=== PATIENT | female | born 1980 ===

== ENCOUNTER 2018-03-11 18:41 | Emergency (ER) | payer MEDICAID ==
[2018-03-11 18:47] VITALS: RESP 16; TEMP 98.4; O2SAT 100
--- NOTE | 2018-03-11 19:07 | ED PDOC ---
HPI: Hypertension/Hypotension Time Seen by Provider: 03/11/18 18:48 Chief Complaint (Nursing): High Blood Pressure Chief Complaint (Provider): elevated blood pressure, leg edema, palpitations History Per: Histology Supervisor ([id number]) History/Exam Limitations: no limitations Onset/Duration Of Symptoms: Days (5-6) Associated Symptoms: denies: Chest Pain, Dyspnea, Dizziness, Blurred Vision, Focal Weakness, Headache Quality Of Symptoms: Rapid Heart Rate Severity: Mild Additional Complaint(s): 37yo female c/o b/l LE edema associated with palpitations and lower extremity cramping ongoing for 1-2 weeks. States takes norvasc and HCTZ for high blood pressure. Denies SOB, chest pain, orthopnea, syncope or dizziness. Denies history blood clots or smoking. Past Medical History Reviewed: Historical Data, Nursing Documentation, Vital Signs Vital Signs: Last Vital Signs Temp 98.4 F 03/11/18 18:43 Pulse 84 03/11/18 18:43 Resp 16 03/11/18 18:43 BP 138/97 H 03/11/18 18:43 Pulse Ox 100 03/11/18 18:43 - Medical History PMH: HTN - Surgical History Surgical History: - Family History Family History: States: Hypertension - Living Arrangements Living Arrangements: With Family - Social History Current smoker - smoking cessation education provided: No - Home Medications Home Medications: Ambulatory Orders Medication Instructions Recorded Metoprolol Tartrate 25 mg PO Q12 #30 tablet 03/11/18 - Allergies Allergies/Adverse Reactions: Allergies Allergy/AdvReac Type Severity Reaction Status Date / Time No Known Allergies Allergy Verified 03/11/18 18:43 Review of Systems Constitutional: Negative for: Fever, Chills Cardiovascular: Positive for: Edema. Negative for: Chest Pain, Orthopnea, Paroxysmal Noc. Dyspnea, Light Headedness Respiratory: Negative for: Cough, Shortness of Breath Gastrointestinal: Negative for: Abdominal Pain Genitourinary Female: Negative for: Dysuria Musculoskeletal: Negative for: Neck Pain, Arm Pain, Hand Pain, Leg Pain Skin: Negative for: Rash, Lesions, Jaundice, Bruising Neurological: Negative for: Weakness, Numbness, Headache, Dizziness Psych: Negative for: Suicidal ideation Physical Exam - Reviewed Nursing Documentation Reviewed: Yes Vital Signs Reviewed: Yes - Physical Exam Appears: Positive for: Well, Non-toxic, No Acute Distress Head Exam: Positive for: ATRAUMATIC, NORMAL INSPECTION, NORMOCEPHALIC Skin: Positive for: Normal Color, Warm, DRY Eye Exam: Positive for: EOMI, Normal appearance, PERRL ENT: Positive for: Normal ENT Inspection Neck: Positive for: Normal, Painless ROM Cardiovascular/Chest: Positive for: Regular Rate, Rhythm Respiratory: Positive for: CNT, Normal Breath Sounds Gastrointestinal/Abdominal: Positive for: Normal Exam, Soft. Negative for: Tenderness Back: Positive for: Normal Inspection Extremity: Positive for: Normal ROM, Swelling (b/l 1+ pitting edema b/l LE). Negative for: Calf Tenderness Neurologic/Psych: Positive for: Alert, Oriented - Laboratory Results Result Diagrams: 03/11/18 19:22 03/11/18 19:22 Urine POC: Negative - ECG ECG: Positive for: Interpreted By Me ECG Rhythm: Positive for: Normal QRS, Normal ST Segment. Negative for: ST/T Changes Rate: 74 O2 Sat by Pulse Oximetry: 100 Pulse Ox Interpretation: Normal - Radiology X-Ray: Interpreted by [place] X-Ray Interpretation: No Acute Disease, Other (neg CM) Medical Decision Making Medical Decision Making: symptoms possible attributed to side effects of norvasc 10mg (peripheral edema) and HCTZ 25mg (hypokalemia /cramping) which she takes daily. Check labs, reveals mild hypokalemia. BNP and trop neg Hgb normal Remains sinus rhythm without SOB or chest pain in ED. Explained results in icelandic and extensive conversation on rec to see PMD for permanent antihypertensives adjustment, given symptoms and need for dual therapy in past refer cardio electric gas appliances demonstrator. Potassium supplementation for next few days, initiated in ED. Return ER for any SOB, chest pain, persistent edema or any concern. Disposition - Clinical Impression Clinical Impression: Peripheral edema, Palpitations - Patient ED Disposition Is Patient to be Admitted: No Counseled Patient/Family Regarding: Studies Performed, Diagnosis, Need For Followup - Disposition Referrals: Yordy Granados MD [Staff Provider] - Disposition: Routine/Home Disposition Time: 21:55 Condition: STABLE Additional Instructions: Stop your current blood pressure medications, start metoprolol 25mg one pill in morning and night and speak to your doctor about permanent substitution. You were likely experiencing side effects from your prior blood pressure medications. Supplement with extra potassium for next few days- bananas and orange juice are good sources of potassium [place]: Detenga sharon medicamentos actuales para la presin arterial, comience a metoprolol 25mg maximus pastilla por la maana y por la noche y hable con kilpatrick mdico acerca de la sustitucin permanente. Es probable que experimente efectos secundarios de sharon medicamentos de presin arterial anteriores. Suplemento con potasio extra para los prximos santizo-los pltanos y el zumo de naranja son buenas burnett de potasio. Prescriptions: Metoprolol Tartrate 25 mg PO Q12 #30 tablet Instructions: High Blood Pressure in Adults, Dependent Edema (DC), Side Effects From Medicines, Palpitations Forms: [facility] [facility] (French) Print Language: ARMENIAN
[2018-03-11 19:38] LABS: BASO # 0.1 K/uL (0.0-0.2); BASO % 0.8 % (0.0-2.0); EOS # 0.1 K/uL (0.0-0.7); EOS % 1.9 % (0.0-4.0); HEMOGLOBIN 14.3 g/dL (12.0-16.0); LYMPH # 2.4 K/uL (1.0-4.3); MEAN CELL VOLUME 91.4 fl (81.0-99.0); MEAN CORPUSCULAR HEMOGLOBIN 31.2 pg (27.0-31.0); MEAN CORPUSCULAR HGB CONC 34.2 g/dL (33.0-37.0); MEAN PLATELET VOLUME 7.9 fl (7.2-11.7); MONO # 0.5 K/uL (0.0-0.8); MONO % 6.7 % (0.0-10.0); NEUT # 4.1 K/uL (1.8-7.0); NEUT % 56.6 % (50.0-75.0); RBC 4.58 Mil/uL (3.80-5.20); RED CELL DISTRIBUTION WIDTH 13.3 % (11.5-14.5); WHITE BLOOD COUNT 7.2 K/uL (4.8-10.8)
[2018-03-11 19:43] LABS: ALB/GLOB RATIO 1.3 (1.0-2.1); ALBUMIN 4.2 g/dL (3.5-5.0); ALT/SGPT 27 U/L (9-52); AST/SGOT 25 U/L (14-36); BLOOD UREA NITROGEN 10 mg/dl (7-17); CALCIUM 9.6 mg/dL (8.4-10.2); GFR AFRICAN-AMERICAN > 60; GFR NON-AFRICAN AMERICAN > 60
[2018-03-11] MEDS ORDERED: Potassium Chloride 20 mEq ER Tab PO ONE ×2 (19:49→19:54)
[2018-03-11 21:09] LABS: B-TYPE NATRIURETIC PEPTIDE 21.5 pg/ml (0-450)
[2018-03-11 22:13] VITALS: PULSE 74
[2018-03-11 22:16] VITALS: BP 132/95
--- NOTE | 2018-03-12 08:58 | RAD ---
HISTORY: EDEMA COMPARISON: No prior. TECHNIQUE: Chest PA and lateral FINDINGS: LUNGS: No active pulmonary disease. PLEURA: No significant pleural effusion identified. No pneumothorax apparent. CARDIOVASCULAR: Normal. OSSEOUS STRUCTURES: No significant abnormalities. VISUALIZED UPPER ABDOMEN: Normal. OTHER FINDINGS: None. IMPRESSION: No active disease.
--- NOTE | 2018-03-12 10:01 | CARD ---
APPROVED REPORT EKG Measurement Heart [id number] <Conclusion> Normal sinus rhythm Normal ECG
== END 2018-03-11 22:16 | disposition home or self-care (01) ==
LOC: H.ER 18:41
DX: R00.2 Palpitations (principal); R60.9 Edema, unspecified; I10 Essential (primary) hypertension